=== PATIENT | female | born 2000 | race Hispanic/Latino ===

== ENCOUNTER 2021-02-27 10:37 | Emergency (ER) | payer OTHER ==
[~2021-02-27] VITALS: Ht 170.2 cm; Wt 57.6 kg
[2021-02-27] MEDS ORDERED: ZPAK PO (11:37)
[2021-02-27 11:46] VITALS: BP 123/83
== END 2021-02-27 11:46 | disposition home or self-care (01) | DRG 153 ==
LOC: ED 10:37
DX: J06.9 Acute upper respiratory infection, unspecified (principal); Z20.822 Contact with and (suspected) exposure to COVID-19

== ENCOUNTER 2021-03-13 18:09 | Emergency (ER) | payer OTHER ==
[~2021-03-13] VITALS: Ht 170.2 cm; Wt 59.5 kg
[~2021-03-13 18:09] MED LIST: ZPAK PO
[2021-03-13] MEDS ORDERED: AMOX/K CLAV875 M1 PO (18:33)
[2021-03-13 18:58] VITALS: BP 119/80
== END 2021-03-13 18:58 | disposition home or self-care (01) | DRG 159 ==
LOC: ED 18:09
DX: K08.89 Other specified disorders of teeth and supporting structures (principal)

== ENCOUNTER 2022-08-22 07:13 | Emergency (ER) | payer OTHER ==
[~2022-08-22] VITALS: Ht 170.2 cm; Wt 54.6 kg
[~2022-08-22 07:13] MED LIST changes: +AMOX/K CLAV875 M1 PO
[2022-08-22] MEDS ORDERED: TAM75CAP PO (09:33)
[2022-08-22 09:48] VITALS: BP 95/55
== END 2022-08-22 09:48 | disposition home or self-care (01) | DRG 195 ==
LOC: ED 07:13
DX: J10.1 Influenza due to other identified influenza virus with other respiratory manifestations (principal); Z20.822 Contact with and (suspected) exposure to COVID-19

== ENCOUNTER 2024-03-13 15:13 | Emergency (ER) | payer OTHER ==
[~2024-03-13] VITALS: Ht 170.2 cm; Wt 63.0 kg
[~2024-03-13 15:13] MED LIST changes: +TAM75CAP PO
[2024-03-13 15:40] VITALS: BP 109/78
[2024-03-13] MEDS ORDERED: AMOXICILLIN & POT CLAVULANATE 875 MG/TAB PO ONE (15:55)
[2024-03-13] MEDS ORDERED: Diph, Acellular Pertussis, Tet 0.5 ML/VIAL (Tdap) SDV IM ONE (15:55)
[2024-03-13 16:00] VITALS: BP 111/81
[2024-03-13 16:30] VITALS: BP 110/78
[2024-03-13 17:00] VITALS: BP 108/76
[2024-03-13 17:30] VITALS: BP 102/68
[2024-03-13] MEDS ORDERED: AMOX/K CLAV875 M1 PO (17:39)
[2024-03-13 17:49] VITALS: BP 102/68
== END 2024-03-13 17:54 | disposition home or self-care (01) | DRG 605 ==
LOC: ED 15:13
DX: S61.250A Open bite of right index finger without damage to nail, initial encounter (principal); W55.01XA Bitten by cat, initial encounter; Y92.210 Daycare center as the place of occurrence of the external cause